=== PATIENT | female | born 1985 | race Caucasian/White ===

== ENCOUNTER 2017-05-06 21:33 | Observation (INO) | payer OTHER ==
[~2017-05-06] VITALS: Ht 165.1 cm; Wt 85.0 kg
== END 2017-05-07 01:12 | disposition home or self-care (01) ==
LOC: LDOP 21:33 → LDIP 05-07 00:01
PROVIDERS: ADMIT Obstetrics & Gynecology; ATTEND Obstetrics & Gynecology
DX: O30.043 Twin pregnancy, dichorionic/diamniotic, third trimester (principal); O26.872 Cervical shortening, second trimester; O26.892 Other specified pregnancy related conditions, second trimester; R10.30 Lower abdominal pain, unspecified; N89.8 Other specified noninflammatory disorders of vagina; Z3A.27 27 weeks gestation of pregnancy
CPT/HCPCS: 59025; 76817; 81001; 87086; 89060; 99201; G0378; G0463; Q0114